=== PATIENT | female | born 1975 | race Caucasian/White ===

== ENCOUNTER 2016-11-02 08:20 | Emergency (ER) | payer OTHER, SELFPAY ==
[~2016-11-02] VITALS: Ht 167.6 cm; Wt 68.0 kg
[2016-11-02] MEDS ORDERED: NAPR500T PO (10:38)
[2016-11-02 10:44] VITALS: BP 116/62
== END 2016-11-02 10:49 | disposition home or self-care (01) ==
LOC: M ED 09:28
DX: M19.071 Primary osteoarthritis, right ankle and foot (principal); F17.200 Nicotine dependence, unspecified, uncomplicated; Z88.5 Allergy status to narcotic agent

== ENCOUNTER → 2020-05-13 | Outpatient (CLI) | payer OTHER ==
[~2020-05-13] MED LIST: NAPR-837 PO
[2020-05-13 09:54] LABS: ALT/SGPT 17 U/L (12-78); BILIRUBIN,TOTAL 0.4 MG/DL (0.2-1.0); BLOOD UREA NITROGEN 6 MG/DL (7-18); CARBON DIOXIDE LEVEL 27 MEQ/L (21-32); CHLORIDE LEVEL 107 MEQ/L (98-107); CHOLESTEROL LEVEL 197 MG/DL (<200); CHOLESTEROL RISK RATIO 6.156 (<5); CREATININE FOR GFR 0.68 MG/DL (0.55-1.30); FREE T4 1.05 NG/DL (0.76-1.46); GLOMERULAR FILTRATION RATE > 60.0 (>58); GLUCOSE, FASTING 85 MG/DL (70-100); HDL CHOLESTEROL 32 MG/DL (>40); LDL CHOLESTEROL 146 MG/DL (<100); NON-HDL-C 165 MG/DL; POTASSIUM SERUM 3.8 MEQ/L (3.5-5.1); SODIUM LEVEL 141 MEQ/L (136-145); THYROID STIMULATING HORMONE 0.892 uIU/ML (0.358-3.740); TOTAL PROTEIN 7.3 GM/DL (6.4-8.2); TRIGLYCERIDES LEVEL 96 MG/DL (<150)
== END ==
LOC: M LAB 08:49
PROVIDERS: ATTEND Physician Assistant
DX: E55.9 Vitamin D deficiency, unspecified (principal); R41.840 Attention and concentration deficit; F41.9 Anxiety disorder, unspecified; Z13.220 Encounter for screening for lipoid disorders

== ENCOUNTER 2020-06-21 11:00 | Emergency (ER) | payer OTHER ==
[~2020-06-21] VITALS: Ht 167.6 cm; Wt 74.3 kg
[2020-06-21 11:00] VITALS: BP 131/71
--- OUTSIDE RECORDS SUMMARY | 2020-06-21 11:08 | CCD ---
Author Author [facility] Organization [facility] Address Unknown Phone Unavailable Care Team Providers Care Relay Tester Name Role Phone Pam Rahman Unavailable PROBLEMS Type Condition ICD9-CM Code [id number] Code Onset Dates Condition S tatus SNOMED Code Notes Problem Enlarged thyroid 240.9 Active 7669879 Problem Fatigue 780.79 Active 89916879 Problem Ovarian cyst 620.2 Active 01463816 Problem B12 deficiency 266.2 Active 52178265 Problem Vitamin d deficiency 268.9 Active 23220705 Problem Difficulty concentrating R41.840 Active 5117492 5 Problem Vitamin D deficiency disease E55.9 Active 347 16514 Problem History of tobacco use, presenting hazards to health V15.82 Active 8201834439190 Problem Mixed hyperlipidemia E78.2 Active 316159787 Problem Nicotine dependence 305.1 Active 07617139 Problem Anxiety F41.9 Active 83385176 Problem Vitamin D deficiency E55.9 Active 24482279 Problem Nicotine dependence, cigarettes, uncomplicated F17 .210 Active 18654833 Problem Anxiety about blushing F41.9 Active 64516793 ALLERGIES Allergen (clinical drug ingredient) Drug/Non Drug Allergy do cumented on EMR Reaction Allergy Type Onset Date Status codeine Codeine Sulfate([facility] Code:[address]-58) Rash/ h/a Drug Al lergy Active Latex (for allergy use only) Rash Drug Allergy Active Adhesive Tape Rash Drug Allergy Active ENCOUNTERS from 1977 to 2020-06-10 Encounter Location Date Provider Diagnosis [address] [address] May, Pam Josiah Anxiety F41.9 ; Difficulty concentrating R41.840 ; Mixed hyperlipidemia E78.2 ; Vitamin D deficiency E55.9 and Nicotine dependence, cigarettes, uncomplicated F17.210 IMMUNIZATIONS Vaccine Route Administration Date Status TDAP 0.5mL (Boostrix) IM Intramuscular September 11, 2013 Administe red SOCIAL HISTORY Tobacco Use: Social History Observation Description Date Details (start date - stop date) Current Smoker Sex Assigned At : Social History Observation Description Sex Assigned At Unknown Education: Question Answer Notes Level of Education: College Audit Question Answer Notes Total Score: 1 Interpretation: Alcohol Education Language: Question Answer Notes Languages spoken: [place] Islander Roman Catholic: Question Answer Notes Roman Catholic No worship beliefs that would impact health care. Sexual Hx: Question Answer Notes Had sex in the last 12 months (vaginal, oral, or anal)? Yes LMP: 04/22/2020 Have you ever had an STD? No with Men only Use protection? No Drug and Alcohol Question Answer Notes Total Score: 0 Interpretation: No problems reported Alcohol Screening: Question Answer Notes Did you have a drink containing alcohol in the past year? Ye s Points 1 Interpretation Negative How often did you have six or more drinks on one occas ion in the past year? Never (0 points) How many drinks did you have on a typica l day when you were drinking in the past year? 1 or 2 (0 points) How often did you have a drink containing alcohol in t he past year? Monthly or less (1 point) Tobacco Use: Question Answer Notes Are you a: current smoker How many cigarettes a day do you smoke? 6-10 Are you interested in quitting? Ready to quit Counseled the patient on tobacco use, cessation provided 12/2019 REASON FOR REFERRAL No Information VITAL SIGNS Weight 159 lbs May, Height 67.5 in May, BMI 24.53 kg/m2 May, Heart Rate 93 /min May, Respiratory Rate 18 /min May, Temperature 97.7 degrees Fahrenheit May, Oximetry 100 May, Blood pressure systolic 116 mm Hg May, Blood pressure diastolic 80 mm Hg May, MEDICATIONS Medication SIG (Take, Route, Frequency, Duration) Notes Start Da te End Date Status Nicotine 14 MG/24HR 1 patch to skin Transdermal Once a day for 3 0 day(s) Apr, Not-Taking Vitamin B12 500 MCG 1 tablet Orally Once a day for 30 day(s) Active Aleve 220 MG 1 tablet as needed Orally twice daily as needed Active Chantix Starting Month Levi 0.5 MG X 11 & 1 MG X 42 as directed Orally as directed for 30 Days May, Active Multivitamins OTC as directed Orally daily Active Drisdol 60664 UNIT 1 capsule Orally once weekly for 30 day(s) Active Calcium 600-D 600-400 MG-UNIT 1 tablet with food Orally once a day Active Iron OTC 1 tab Orally daily for 30 day(s) Active Atomoxetine HCl 80 MG 1 capsule in the morning Orally Twice a da y Apr, Active Chantix Continuing Month Levi 1 MG 1 tablet Orally Twice a day for 3 0 day(s) Not-Taking Strattera 40 MG 1 capsule in the morning Orally Once a day for 1 4 day(s) Apr, Not-Taking Atomoxetine HCl 40 MG 1 capsule in the morning Orally Twice a day for 30 day(s) May, Active Ibuprofen 200 MG 1 tablet as needed Orally every 6 hrs hrs as needed Active PROCEDURES No Information RESULTS No Results REASON FOR VISIT 4 weeks MEDICAL (GENERAL) HISTORY Type Description Date Medical History sanchez use, since early 20s Medical History h/o ovarian cyst Medical History RAMA 10/04 - FEV1 3.23 Surgical History C section 02/2005 Surgical History right ankle - bone fragments removed 1993 Surgical History tubal ligation 06/2005 Surgical History D & C 07/2002 Hospitalization History first two vaginal deliveries and second a primary section d/t breech 1995, 2003, 2004 Goals Section No Information Health Concerns No Information MEDICAL EQUIPMENT No Information MENTAL STATUS No Information FUNCTIONAL STATUS No Information ASSESSMENTS Encounter Date Diagnosis Assessment Notes Treatment Notes Treatm ent Clinical Notes May, Anxiety (ICD-10 - F41.9) as above May, Difficulty concentrating (ICD-10 - R41.840) better on the atomoxetine, patient would like to seperate the doses, however it is a capsule, will try to get insurance to cover 40mg bid as an alternative May, Mixed hyperlipidemia (ICD-10 - E78.2) 10 year ASCVD risk is 5.3%. Based on the current 2018 ALICE/AHA clinical practice guidelines, patient is considered borderline risk. We engaged in a risk discussion and reviewed risk enhancers. Patient does not have a family hx of premature ASCVD, persistently elevated LDL-C >160, CKD, Metabolic Syndrome, inflammatory diseases, early menopause or persistently elevated triglycerides. After much discussion and through shares decision making statin therapy will not be initiated. I reviewed/recommended lifestyle modifications to help lower cardiovascular disease risk. These recommendations included eating a heart healthy diet, regular aerobic exercise and maintaining a desirable body weight May, Vitamin D deficiency (ICD-10 - E55.9) patient to start OTC vitamin D supplements May, Nicotine dependence, cigarettes, uncompl icated (ICD-10 - F17.210) will send chantix for patient to start, she has been on the medication before and did not have any side effects PLAN OF TREATMENT Medication Medication Name Sig Start Date Stop Date Chantix Starting Month Levi 0.5 MG X 11 & 1 MG X 42 as directed Orally as directed for 30 Days May, Atomoxetine HCl 40 MG 1 capsule in the morning Orally Twice a day for 30 day(s) May, Treatment Notes Assessment Notes Clinical Notes Anxiety as above Difficulty concentrating better on the a tomoxetine, patient would like to seperate the doses, however it is a capsule, will try to get insurance to cover 40mg bid as an alternative Mixed hyperlipidemia 10 year ASCVD risk is 5.3%. Based on the current 2018 ALICE/AHA clinical practice guidelines, patient is considered borderline risk. We engaged in a risk discussion and reviewed risk enhancers. Patient does not have a family hx of premature ASCVD, persistently elevated LDL-C >160, CKD, Metabolic Syndrome, inflammatory diseases, early menopause or persistently elevated triglycerides. After much discussion and through shares decision making statin therapy will not be initiated. I reviewed/recommended lifestyle modifications to help lower cardiovascular disease risk. These recommendations included eating a heart healthy diet, regular aerobic exercise and maintaining a desirable body weight Vitamin D deficiency patient to start OT C vitamin D supplements Nicotine dependence, cigarettes, uncomplicated will send chantix for patient to start, she has been on the medication before and did not have any side effects Next Appt Details 6 Months Reason: Provider Name:Pamdarrick Rahman, 2020-11-25 10 :00:00 AM, [address] [place], [address], Insurance Providers Payer Name Payer Address Payer Phone Insured Name Patient Relati onship to Insured Coverage Start Date Coverage End Date [facility] [address] [facility] [phone] ZAINAB MASSEY self
--- OUTSIDE RECORDS SUMMARY | 2020-06-21 11:08 | CCD ---
Author Author [facility] Organization [facility] Address Unknown Phone Unavailable Care Team Providers Care Butadiene Converter Operator Name Role Phone Pam Rahman Unavailable PROBLEMS Type Condition ICD9-CM Code [id number] Code Onset Dates Condition S tatus SNOMED Code Notes Problem Enlarged thyroid 240.9 Active 9800169 Problem Fatigue 780.79 Active 52656662 Problem Ovarian cyst 620.2 Active 87350471 Problem B12 deficiency 266.2 Active 52540269 Problem Vitamin d deficiency 268.9 Active 59334037 Problem Difficulty concentrating R41.840 Active 8493381 5 Problem Vitamin D deficiency disease E55.9 Active 347 88276 Problem History of tobacco use, presenting hazards to health V15.82 Active 8516343785418 Problem Mixed hyperlipidemia E78.2 Active 227069962 Problem Nicotine dependence 305.1 Active 12419272 Problem Anxiety F41.9 Active 39443824 Problem Vitamin D deficiency E55.9 Active 61482635 Problem Nicotine dependence, cigarettes, uncomplicated F17 .210 Active 81103376 Problem Anxiety about blushing F41.9 Active 40464378 ALLERGIES Allergen (clinical drug ingredient) Drug/Non Drug Allergy do cumented on EMR Reaction Allergy Type Onset Date Status codeine Codeine Sulfate([facility] Code:[address]-51) Rash/ h/a Drug Al lergy Active Latex (for allergy use only) Rash Drug Allergy Active Adhesive Tape Rash Drug Allergy Active ENCOUNTERS from 1977 to 2020-06-01 Encounter Location Date Provider Diagnosis [address] [address] Apr, Pam Rahman Adult general medical examination Z00.00 ; Difficulty concentrating R41.840 ; Anxiety F41.9 ; Vitamin D deficiency E55.9 ; Nicotine dependence, cigarettes, uncomplicated F17.210 ; Encounter for screening mammogram for malignant neoplasm of breast Z12.31 and Screening for lipid disorders Z13.220 IMMUNIZATIONS Vaccine Route Administration Date Status TDAP [...] Education Language: Question Answer Notes Languages spoken: Martiniquais Adventism: Question Answer Notes Adventism No mormonism beliefs that would impact health care. Sexual [...] FOR REFERRAL No Information VITAL SIGNS Weight 158 lbs Apr, Height 67.5 in Apr, BMI 24.38 kg/m2 Apr, Heart Rate 111 /min Apr, Respiratory Rate 18 /min Apr, Temperature 98.5 degrees Fahrenheit Apr, Oximetry 94 Apr, Blood pressure systolic 112 mm Hg Apr, Blood pressure diastolic 80 mm Hg Apr, MEDICATIONS Medication SIG (Take, Route, Frequency, Duration) Notes Start Da te End Date Status Aleve 220 MG 1 tablet as needed Orally twice daily as needed Active Calcium 600-D 600-400 MG-UNIT 1 tablet with food Orally once a day Active Strattera 40 MG 1 capsule in the morning Orally Once a day for 1 4 day(s) Apr, Not-Taking Drisdol 11165 UNIT 1 capsule Orally once weekly for 30 day(s) Active Ibuprofen 200 MG 1 tablet as needed Orally every 6 hrs hrs as needed Active Iron OTC 1 tab Orally daily for 30 day(s) Active Nicotine 14 MG/24HR 1 patch to skin Transdermal Once a day for 3 0 day(s) Apr, Not-Taking Chantix Starting Month Levi 0.5 MG X 11 & 1 MG X 42 as directed Orally as directed for 30 Days May, Active Atomoxetine HCl 80 MG 1 capsule in the morning Orally Twice a da y Apr, Active Multivitamins OTC as directed Orally daily Active Vitamin B12 500 MCG 1 tablet Orally Once a day for 30 day(s) Active Chantix Continuing Month Levi 1 MG 1 tablet Orally Twice a day for 3 0 day(s) Not-Taking PROCEDURES No Information RESULTS No Results REASON FOR VISIT Was Jaki ptElias 2014 MEDICAL (GENERAL) HISTORY Type Description Date Medical [...] Notes Treatment Notes Treatm ent Clinical Notes Apr, Adult general medical examination (ICD-10 - Z00. 00) age appropriate anticipatory guidance given, per USPSTF recommendations; immunizations up to date. discussed plans for implementing improvement in identified areas Apr, Difficulty concentrating (ICD-10 - R41.840) will start patient on Strattera for her symptoms, Instructions given to patient on medication use along with a discussion concerning common reactions/side effects to medication. Patient verbalized understanding and will call clinic with any further questions or concerns. will follow up in 4-6 weeks. Apr, Anxiety (ICD-10 - F41.9) as above Apr, Vitamin D deficiency (ICD-10 - E55.9) will check vitamin D levels today Apr, Nicotine dependence, cigarettes, uncompl icated (ICD-10 - F17.210) Smoking cessation advised for 5 min. Patient willing to quit, interested in starting nicotine patches. I discussed with patient, in every day terms, the health effects associated with smoking. These included: cancer (lung, colon, head and neck), stroke, heart disease, gum infection, and chronic lung disease. Patient verbalized understanding. I will continue to encourage cessation. Apr, Encounter for screening mamm ogram for malignant neoplasm of breast (ICD-10 - Z12.31) Mammogram order given to patient today. She will schedule her own appointment Apr, Screening for lipid disorders (ICD-10 - Z13.220) PLAN OF TREATMENT Medication Medication Name Sig Start Date Stop Date Chantix Starting Month Levi 0.5 MG X 11 & 1 MG X 42 as directed Orally as directed for 30 Days May, Treatment Notes Assessment Notes Clinical Notes Adult general medical examination age ap propriate anticipatory guidance given, per USPSTF recommendations; immunizations up to date. discussed plans for implementing improvement in identified areas Difficulty concentrating will start ousmane ent on Yadyera for her symptoms, Instructions given to patient on medication use along with a discussion concerning common reactions/side effects to medication. Patient verbalized under standing and will call clinic with any further questions or concerns. will follow up in 4-6 weeks. Anxiety as above Vitamin D deficiency will check vitamin D levels today Nicotine dependence, cigarettes, uncomplicated Smoking cessation advised for 5 min. Patient willing to quit, interested in starting nicotine patches. I discussed with patient, in every day terms, the health effects associated with smoking. These included: cancer (lung, colon, head and neck), stroke, heart disease, gum infection, and chronic lung disease. Patient verbalized understanding. I will continue to encourage cessation. Encounter for screening mammogram for malignant neoplasm of breast Mammogram order given to patient today. She will schedule her own appointment Future Test Test Name Order Date [facility]ila Screening Bilateral (Ultrasound if Indicated ) (3D Mammo) [id number] VITAMIN D 25-HYDROXY [id number] FREE T4 & TSH PANEL [id number] LIPID PANEL (CARDIAC RISK) [id number] Comprehensive Metabolic Profile (CMP) [id number] Next Appt Details 4 Weeks Reason: Provider Name:Pam Rahman, 2020-11-25 10 :00:00 AM, [address] [place], [address], Insurance Providers Payer Name Payer Address Payer Phone Insured Name Patient Relati onship to Insured Coverage Start Date Coverage End Date [facility] COMMUN[facility] PLAN [facility] [address] [facility] [phone] ZAINAB MASSEY self
--- OUTSIDE RECORDS SUMMARY | 2020-06-21 11:08 | CCD ---
Author Author [facility] Organization [facility] Address Unknown Phone Unavailable Care Team Providers Care Patient Safety Coordinator Name Role Phone Pam Rahman Unavailable PROBLEMS Type Condition ICD9-CM Code PXC25-TU Code Onset Dates Condition S tatus SNOMED Code Notes Problem Nicotine dependence 305.1 Active 39976918 Problem History of tobacco use, presenting hazards to health V15.82 Active 6461135099821 Problem B12 deficiency 266.2 Active 73275388 Problem Enlarged thyroid 240.9 Active 1094034 Problem Vitamin D deficiency E55.9 Active 26433704 Problem Fatigue 780.79 Active 16556563 Problem Nicotine dependence, cigarettes, uncomplicated F17 .210 Active 55929433 Problem Ovarian cyst 620.2 Active 04399473 Problem Vitamin d deficiency 268.9 Active 07323438 Problem Anxiety about blushing F41.9 Active 84506647 Problem Difficulty concentrating R41.840 Active 3212909 5 Problem Anxiety F41.9 Active 24680605 ALLERGIES Allergen (clinical drug ingredient) Drug/Non Drug Allergy do cumented on EMR Reaction Allergy Type Onset Date Status codeine Codeine Sulfate([facility] Code:[address]-77) Rash/ h/a Drug Al lergy Active Latex (for allergy use only) Rash Drug Allergy Active Adhesive Tape Rash Drug Allergy Active ENCOUNTERS from 1977 to 2020-05-07 Encounter Location Date Provider Diagnosis [address] [address] Apr, Pam Rahman IMMUNIZATIONS Vaccine Route Administration Date Status TDAP [...] Education Language: Question Answer Notes Languages spoken: Lithuanian Hindu: Question Answer Notes Hindu No sabianism beliefs that would impact health care. Sexual [...] REASON FOR REFERRAL No Information VITAL SIGNS No information MEDICATIONS Medication SIG (Take, Route, Frequency, Duration) Notes Start Da te End Date Status Drisdol 04134 UNIT 1 capsule Orally once weekly for 30 day(s) Active Nicotine 14 MG/24HR 1 patch to skin Transdermal Once a day for 3 0 day(s) Apr, Active Aleve 220 MG 1 tablet as needed Orally twice daily as needed Active Ibuprofen 200 MG 1 tablet as needed Orally every 6 hrs hrs as needed Active Strattera 40 MG 1 capsule in the morning Orally Once a day for 1 4 day(s) Apr, Active Calcium 600-D 600-400 MG-UNIT 1 tablet with food Orally once a day Active Atomoxetine HCl 40 MG 1 capsule in the morning Orally Twice a day for 30 day(s) Apr, Active Multivitamins OTC as directed Orally daily Active Vitamin B12 500 MCG 1 tablet Orally Once a day for 30 day(s) Active Iron OTC 1 tab Orally daily for 30 day(s) Active Chantix Continuing Month Levi 1 MG 1 tablet Orally Twice a day for 3 0 day(s) Not-Taking PROCEDURES No Information RESULTS No Results REASON FOR VISIT nicotine patches MEDICAL (GENERAL) HISTORY Type Description Date Medical [...] No Information FUNCTIONAL STATUS No Information ASSESSMENTS No Information PLAN OF TREATMENT Medication Medication Name Sig Start Date Stop Date Atomoxetine HCl 40 MG 1 capsule in the morning Orally Twice a day for 30 day(s) Apr, Strattera 40 MG 1 capsule in the morning Orally Once a d ay for 14 day(s) Apr, Nicotine 14 MG/24HR 1 patch to skin Transdermal Once a day f or 30 day(s) Apr, Next Appt Details Provider Name:Pam Rahman, 2020-05-28 10 :00:00 AM, [address] [place], [address], Insurance Providers Payer Name Payer Address Payer Phone Insured Name Patient Relati onship to Insured Coverage Start Date Coverage End Date [facility] COMM[facility] PLAN [facility] [address] [facility] [phone] ZAINAB MASSEY self
--- OUTSIDE RECORDS SUMMARY | 2020-06-21 11:08 | CCD ---
Author Author [facility] Organization [facility] Address Unknown Phone Unavailable Care Team Providers Care Makeup Editor Name Role Phone Pam Rahman Unavailable PROBLEMS Type Condition ICD9-CM Code [id number] Code Onset Dates Condition S tatus SNOMED Code Notes Problem Enlarged thyroid 240.9 Active 4778790 Problem Fatigue 780.79 Active 75646994 Problem Ovarian cyst 620.2 Active 38471133 Problem B12 deficiency 266.2 Active 34153567 Problem Vitamin d deficiency 268.9 Active 16116105 Problem Difficulty concentrating R41.840 Active 3168518 5 Problem Vitamin D deficiency disease E55.9 Active 347 26501 Problem History of tobacco use, presenting hazards to health V15.82 Active 0131373222869 Problem Mixed hyperlipidemia E78.2 Active 742777909 Problem Nicotine dependence 305.1 Active 57228698 Problem Anxiety F41.9 Active 43532718 Problem Vitamin D deficiency E55.9 Active 33704806 Problem Nicotine dependence, cigarettes, uncomplicated F17 .210 Active 01378801 Problem Anxiety about blushing F41.9 Active 81548920 ALLERGIES Allergen (clinical drug ingredient) Drug/Non Drug Allergy do cumented on EMR Reaction Allergy Type Onset Date Status codeine Codeine Sulfate([facility] Code:[address]-78) Rash/ h/a Drug Al lergy Active Latex (for allergy use only) Rash Drug Allergy Active Adhesive Tape Rash Drug Allergy Active ENCOUNTERS from 1977 to 2020-05-29 Encounter Location Date Provider Diagnosis [facility] [address] [place] [address] Apr, Pam Josiah IMMUNIZATIONS Vaccine Route Administration Date Status TDAP [...] Education Language: Question Answer Notes Languages spoken: Slovak Muslim: Question Answer Notes Muslim No baptism beliefs that would impact health care. Sexual [...] for 1 4 day(s) Apr, Not-Taking Drisdol 05909 UNIT 1 capsule Orally once weekly for [...] Information RESULTS No Results REASON FOR VISIT PA Atomoxetine HCl 40mg capsules, #60/30 MEDICAL (GENERAL) HISTORY Type Description Date Medical [...] Orally as directed for 30 Days May, Next Appt Details Provider Name:Pam Rahman, 2020-11-25 10 :00:00 AM, [address] [place], [address], Insurance Providers Payer Name Payer Address Payer Phone Insured Name Patient Relati onship to Insured Coverage Start Date Coverage End Date [facility] COMM[facility] PLAN [facility] [address] [facility] [address] [phone] ZAINAB MASSEY self
--- OUTSIDE RECORDS SUMMARY | 2020-06-21 11:08 | CCD ---
Author Author [facility] Organization [facility] Address Unknown Phone Unavailable Care Team Providers Care Seismograph Observer Name Role Phone Pam Rahman Unavailable PROBLEMS Type Condition ICD9-CM Code CSS96-DF Code Onset Dates Condition S tatus SNOMED Code Notes Problem Enlarged thyroid 240.9 Active 7095646 Problem Fatigue 780.79 Active 55410808 Problem Ovarian cyst 620.2 Active 65948939 Problem B12 deficiency 266.2 Active 15225920 Problem Vitamin d deficiency 268.9 Active 75438104 Problem Difficulty concentrating R41.840 Active 0052298 5 Problem Vitamin D deficiency disease E55.9 Active 347 96825 Problem History of tobacco use, presenting hazards to health V15.82 Active 7316412909385 Problem Mixed hyperlipidemia E78.2 Active 949556141 Problem Nicotine dependence 305.1 Active 17148266 Problem Anxiety F41.9 Active 45160081 Problem Vitamin D deficiency E55.9 Active 72649311 Problem Nicotine dependence, cigarettes, uncomplicated F17 .210 Active 84572347 Problem Anxiety about blushing F41.9 Active 32940387 ALLERGIES Allergen (clinical drug ingredient) Drug/Non Drug Allergy do cumented on EMR Reaction Allergy Type Onset Date Status codeine Codeine Sulfate([facility] Code:[address]-74) Rash/ h/a Drug Al lergy Active Latex (for allergy use only) Rash Drug Allergy Active Adhesive Tape Rash Drug Allergy Active ENCOUNTERS from 1977 to 2020-06-12 Encounter Location Date Provider Diagnosis [address] [address] May, Pam Josiah Difficulty concentrating R41.840 IMMUNIZATIONS Vaccine Route Administration Date Status TDAP 0.5mL (Boostrix) IM Intramuscular September 11, 2013 Administe angela SOCIAL HISTORY Tobacco Use: Social History Observation Description Date Details (start date - stop date) Current Smoker Sex Assigned At : Social History Observation Description Sex Assigned At Unknown Education: Question Answer Notes Level of Education: College Audit Question Answer Notes Total Score: 1 Interpretation: Alcohol Education Language: Question Answer Notes Languages spoken: Guyanese Mandaen: Question Answer Notes Mandaen No presybeterian beliefs that would impact health care. Sexual [...] Notes Start Da te End Date Status Chantix Continuing Month Levi 1 MG 1 tablet Orally Twice a day for 3 0 day(s) Not-Taking Chantix Starting Month Levi 0.5 MG X 11 & 1 MG X 42 as directed Orally as directed for 30 Days May, Active Multivitamins OTC as directed Orally daily Active Aleve 220 MG 1 tablet as needed Orally twice daily as needed Active Atomoxetine HCl 80 MG TAKE ONE CAPSULE BY MOUTH EVERY DAY for 30 Active Calcium 600-D 600-400 MG-UNIT 1 tablet with food Orally once a day Active Nicotine 14 MG/24HR 1 patch to skin Transdermal Once a day for 3 0 day(s) Apr, Not-Taking Vitamin B12 500 MCG 1 tablet Orally Once a day for 30 day(s) Active Strattera 40 MG 1 capsule in the morning Orally Once a day for 1 4 day(s) Apr, Not-Taking Ibuprofen 200 MG 1 tablet as needed Orally every 6 hrs hrs as needed Active Drisdol 26252 UNIT 1 capsule Orally once weekly for 30 day(s) Active Atomoxetine HCl 40 MG 1 capsule in the morning Orally Twice a day for 30 day(s) May, Active Iron OTC 1 tab Orally daily for 30 day(s) Active PROCEDURES No Information RESULTS No Results REASON FOR VISIT PA Strattera 40mg cap, BID MEDICAL (GENERAL) HISTORY Type Description Date Medical [...] Treatment Notes Treatm ent Clinical Notes May, Difficulty concentrating (ICD-10 - R41.840) PLAN OF TREATMENT Medication Medication Name Sig Start Date Stop Date Atomoxetine HCl 80 MG TAKE ONE CAPSULE BY MOUTH EVERY DAY for 30 Atomoxetine HCl 40 MG 1 capsule in the morning Orally Twice a day for 30 day(s) May, Chantix Starting Month Levi 0.5 MG X 11 & 1 MG X 42 as directed Orally as directed for 30 Days May, Next Appt Details Provider Name:Pam Rahman, 2020-11-25 10 :00:00 AM, [address] [place], [address], Insurance Providers Payer Name Payer Address Payer Phone Insured Name Patient Relati onship to Insured Coverage Start Date Coverage End Date [facility] [address] [facility] [phone] ZAINAB MASSEY self
--- OUTSIDE RECORDS SUMMARY | 2020-06-21 11:09 | CCD ---
Author Author [facility] Organization [facility] Address Unknown Phone Unavailable Care Team Providers Care Block Inspector Name Role Phone Pittman, Janeth TEST DESIGN ENGINEER Unavailable Unavailable Pittman, Janeth TEST DESIGN ENGINEER Unavailable Unavailable Pittman, Janeth TEST DESIGN ENGINEER Unavailable Unavailable Pittman, Janeth TEST DESIGN ENGINEER Unavailable Unavailable Pittman, Janeth TEST DESIGN ENGINEER Unavailable Unavailable Pittman, Janeth TEST DESIGN ENGINEER Unavailable Unavailable Pittman, Janeth TEST DESIGN ENGINEER Unavailable Unavailable Pittman, Janeth TEST DESIGN ENGINEER Unavailable Unavailable Pittman, Janeth TEST DESIGN ENGINEER Unavailable Unavailable Pittman, Janeth TEST DESIGN ENGINEER Unavailable Unavailable Pittman, Janeth TEST DESIGN ENGINEER Unavailable Unavailable Re-disclosure Warning The records that you are about to access may contain information from federally-assisted alcohol or drug abuse programs. If such information is present, then the following federally mandated warning applies: This information has been disclosed to you from records protected by federal confidentiality rules (42 CFR part 2). The federal rules prohibit you from making any further disclosure of this information unless further disclosure is expressly permitted by the written consent of the person to whom it pertains or as otherwise permitted by 42 CFR part 2. A general authorization for the release of medical or other information is NOT sufficient for this purpose. The Federal rules restrict any use of the information to criminally investigate or prosecute any alcohol or drug abuse patient.The records that you are about to access may contain highly sensitive health information, the redisclosure of which is protected by Article 27-F of the [facility] Public Health law. If you continue you may have access to information: Regarding HIV / AIDS; Provided by facilities licensed or operated by the [facility] Office of Mental Health; or Provided by the [facility] Office for People With Developmental Disabilities. If such information is present, then the following [facility] mandated warning applies: This information has been disclosed to you from confidential records which are protected by state law. State law prohibits you from making any further disclosure of this information without the specific written consent of the person to whom it pertains, or as otherwise permitted by law. Any unauthorized further disclosure in violation of state law may result in a fine or half-way sentence or both. A general authorization for the release of medical or other information is NOT sufficient authorization for further disc losure. Family History Family Member Name Family Member Gender Family Member Status Date o f Status Description Data Source(s) Unknown Female Problem [facility] ([facility]) Unknown Female Problem [facility] ([facility]) Encounters Encounter Providers Location Date Indications Data Source(s ) Unknown [address] [facility] [place] [address] 06/10/2020 12:00:00 AM EST eCW1 ([facility]) Outpatient [address] [facility] [place] [address] 05/28/2020 12:00:00 AM EST eCW1 ([facility]) Unknown [address] [facility] [place] [address] 05/07/2020 12:00:00 AM EST eCW1 ([facility]) Unknown [address] [facility] [place] [address] 05/01/2020 12:00:00 AM EST eCW1 ([facility]) Unknown [address] [facility] [place] [address] 05/01/2020 12:00:00 AM EST eCW1 ([facility]) Outpatient [address] [facility] [place] [address] 04/30/2020 12:00:00 AM EST eCW1 ([facility]) Unknown [address] [facility] [place] [address] 04/30/2020 12:00:00 AM EST eCW1 ([facility]) Outpatient Attender: Janeth aleman 08/21/2019 09:15:00 AM EDT [facility] ([facility]) Medications Medication Brand Name Start Date Product Form Dose Route Admi nistrative Instructions Pharmacy Instructions Status Indications Reaction Description Data Source(s) 40 mg 06/12/2020 12:00:00 AM EST capsule 60 TAKE ONE CAPSULE BY MOUTH TWICE A DAY TAKE ONE CAPSULE BY MOUTH TWICE A DAY SOLD: 06/12/2020 [facility] 80 mg 06/12/2020 12:00:00 AM EST capsule 30 TAKE ONE CAPSULE BY MOUTH EVERY DAY TAKE ONE CAPSULE BY MOUTH EVERY DAY SOLD: 06/12/2020 [facility] atomoxetine 40 MG Oral Capsule Atomoxetine HCl 40 MG Atomoxe giuliana HCl 40 MG 06/08/2020 12:00:00 AM EST 1.0 {capsule_in_the_morning} active Atomoxetine HCl 40 MG eCW1 ([facility]) atomoxetine 40 MG Oral Capsule Atomoxetine HCl 40 MG Atomoxe giuliana HCl 40 MG 06/08/2020 12:00:00 AM EST 1.0 {capsule_in_the_morning} active Atomoxetine HCl 40 MG eCW1 ([facility]) Chantix Starting Month Levi 0.5 MG X 11 & 1 MG X 42 Radha ntix Starting Month Levi 0.5 MG X 11 & 1 MG X 42 05/28/2020 12:00:00 AM EST active Chantix Starting Month Levi 0.5 MG X 11 & 1 MG X 42 eCW1 ([facility]) Chantix Starting Month Levi 0.5 MG X 11 & 1 MG X 42 Radha ntix Starting Month Levi 0.5 MG X 11 & 1 MG X 42 05/28/2020 12:00:00 AM EST active Chantix Starting Month Levi 0.5 MG X 11 & 1 MG X 42 eCW1 ([facility]) Chantix Starting Month Levi 0.5 MG X 11 & 1 MG X 42 Radha ntix Starting Month Levi 0.5 MG X 11 & 1 MG X 42 05/28/2020 12:00:00 AM EST active Chantix Starting Month Levi 0.5 MG X 11 & 1 MG X 42 eCW1 ([facility]) 0.5 mg (11)- 1 mg (42) 05/28/2020 12:00:00 AM EST tablets,do se pack 53 DIRECTED DIRECTED SOLD: 05/30/2020 [facility] Chantix Starting Month Levi 0.5 MG X 11 & 1 MG X 42 Radha ntix Starting Month Levi 0.5 MG X 11 & 1 MG X 42 05/28/2020 12:00:00 AM EST active Chantix Starting Month Levi 0.5 MG X 11 & 1 MG X 42 eCW1 ([facility]) 14 mg/24 hr 05/07/2020 12:00:00 AM EST patch 24 hour 28 APPLY 1 PATCH TO SKIN ONCE DAILY APPLY 1 PATCH TO SKIN ONCE DAILY SOLD: 05/07/2020 [facility] 24 HR Nicotine 0.583 MG/HR Transdermal Patch Nicotine 14 MG/24HR Nicotine 14 MG/24HR 05/07/2020 12:00:00 AM EST 1.0 {patch_to_skin} suspended Nicotine 14 MG/24HR eCW1 ([facility]) 24 HR Nicotine 0.583 MG/HR Transdermal Patch Nicotine 14 MG/24HR Nicotine 14 MG/24HR 05/07/2020 12:00:00 AM EST 1.0 {patch_to_skin} suspended Nicotine 14 MG/24HR eCW1 ([facility]) 24 HR Nicotine 0.583 MG/HR Transdermal Patch Nicotine 14 MG/24HR Nicotine 14 MG/24HR 05/07/2020 12:00:00 AM EST 1.0 {patch_to_skin} suspended Nicotine 14 MG/24HR eCW1 ([facility]) 24 HR Nicotine 0.583 MG/HR Transdermal Patch Nicotine 14 MG/24HR Nicotine 14 MG/24HR 05/07/2020 12:00:00 AM EST 1.0 {patch_to_skin} active Nicotine 14 MG/24HR eCW1 ([facility]) 24 HR Nicotine 0.583 MG/HR Transdermal Patch Nicotine 14 MG/24HR Nicotine 14 MG/24HR 05/07/2020 12:00:00 AM EST 1.0 {patch_to_skin} suspended Nicotine 14 MG/24HR eCW1 ([facility]) atomoxetine 40 MG Oral Capsule [Strattera] Strattera 40 MG S trattera 40 MG 05/06/2020 12:00:00 AM EST 1.0 {capsule_in_the_morning} suspended Strattera 40 MG eCW1 ([facility]) atomoxetine 40 MG Oral Capsule [Strattera] Strattera 40 MG S trattera 40 MG 05/06/2020 12:00:00 AM EST 1.0 {capsule_in_the_morning} active Strattera 40 MG eCW1 ([facility]) atomoxetine 40 MG Oral Capsule [Strattera] Strattera 40 MG S trattera 40 MG 05/06/2020 12:00:00 AM EST 1.0 {capsule_in_the_morning} suspended Strattera 40 MG eCW1 ([facility]) atomoxetine 40 MG Oral Capsule [Strattera] Strattera 40 MG S trattera 40 MG 05/06/2020 12:00:00 AM EST 1.0 {capsule_in_the_morning} suspended Strattera 40 MG eCW1 ([facility]) atomoxetine 40 MG Oral Capsule [Strattera] Strattera 40 MG S trattera 40 MG 05/06/2020 12:00:00 AM EST 1.0 {capsule_in_the_morning} active Strattera 40 MG eCW1 ([facility]) atomoxetine 40 MG Oral Capsule [Strattera] Strattera 40 MG S trattera 40 MG 05/06/2020 12:00:00 AM EST 1.0 {capsule_in_the_morning} suspended Strattera 40 MG eCW1 ([facility]) 80 mg 05/03/2020 12:00:00 AM EST capsule 30 TAKE ONE CAPSULE BY MOUTH EVERY DAY TAKE ONE CAPSULE BY MOUTH EVERY DAY SOLD: 05/04/2020 [facility] 40 mg 05/02/2020 12:00:00 AM EST capsule 14 TAKE ONE CAPSULE BY MOUTH EVERY MORNING TAKE ONE CAPSULE BY MOUTH EVERY MORNING SOLD: 05/02/2020 [facility] atomoxetine 40 MG Oral Capsule Atomoxetine HCl 40 MG Atomoxe giuliana HCl 40 MG 04/30/2020 12:00:00 AM EST 1.0 {capsule_in_the_morning} active Atomoxetine HCl 40 MG eCW1 ([facility]) atomoxetine 80 MG Oral Capsule Atomoxetine HCl 80 MG Atomoxe giuliana HCl 80 MG 04/30/2020 12:00:00 AM EST 1.0 {capsule_in_the_morning} active Atomoxetine HCl 80 MG eCW1 ([facility]) atomoxetine 40 MG Oral Capsule Atomoxetine HCl 40 MG Atomoxe giuliana HCl 40 MG 04/30/2020 12:00:00 AM EST 1.0 {capsule_in_the_morning} active Atomoxetine HCl 40 MG eCW1 ([facility]) atomoxetine 80 MG Oral Capsule Atomoxetine HCl 80 MG Atomoxe giuliana HCl 80 MG 04/30/2020 12:00:00 AM EST 1.0 {capsule_in_the_morning} active Atomoxetine HCl 80 MG eCW1 ([facility]) atomoxetine 80 MG Oral Capsule Atomoxetine HCl 80 MG Atomoxe giuliana HCl 80 MG 04/30/2020 12:00:00 AM EST 1.0 {capsule_in_the_morning} active Atomoxetine HCl 80 MG eCW1 ([facility]) atomoxetine 40 MG Oral Capsule Atomoxetine HCl 40 MG Atomoxe giuliana HCl 40 MG 04/30/2020 12:00:00 AM EST 1.0 {capsule_in_the_morning} active Atomoxetine HCl 40 MG eCW1 ([facility]) Insurance Providers Payer name Policy type / Coverage type Policy ID Covered democrat ID Covered democrat's relationship to hanson Policy Hanson Plan Information [facility] [id number] SP [id number] [facility] [id number] SP [id number] SELF PAY ONLY [id number] SP [id number] [facility] [id number] S [id number] [facility] Community Plan Health Maintenance Organization (HMO) Self MEDICAID [id number] SP [id number] BLUE [employer]OSS [employer] PLAN [id number] SP [id number] [employer] [id number] SP [id number] Problems, Conditions, and Diagnoses Code Display Name Description Problem Type Effective Dates Data Source(s) E78.2 [id number] Mixed hyperlipidemia Problem 05/28/2020 12:0 0:00 AM EST eCW1 ([facility]) E55.9 93072882 Vitamin D deficiency disease Problem 021 12:00:00 AM EST eCW1 ([facility]) F17.210 48363108 Nicotine dependence, cigarettes, uncompli cated Problem 05/07/2020 12:00:00 AM EST eCW1 ([facility]) F41.9 04221827 Anxiety about blushing Problem 04/30/2020 12 :00:00 AM EST eCW1 ([facility]) E55.9 58294312 Vitamin D deficiency Problem 04/30/2020 12:0 0:00 AM EST eCW1 ([facility]) F41.9 52109986 Anxiety Problem 04/30/2020 12:00:00 AM ES T eCW1 ([facility]) R41.840 02208743 Difficulty concentrating Problem 04/30/2020 12:00:00 AM EST eCW1 ([facility]) Social History Code Duration Value Status Description Data Source(s ) Smoking 05/28/2020 12:00:00 AM EST Current Smoker completed Curre nt Smoker eCW1 ([facility]) Smoking 05/28/2020 12:00:00 AM EST Current Smoker completed Curre nt Smoker eCW1 ([facility]) Smoking 05/28/2020 12:00:00 AM EST Current Smoker completed Curre nt Smoker eCW1 ([facility]) Smoking 05/28/2020 12:00:00 AM EST Current Smoker completed Curre nt Smoker eCW1 ([facility]) Smoking 04/30/2020 12:00:00 AM EST Current Smoker completed Curre nt Smoker eCW1 ([facility]) Smoking 04/30/2020 12:00:00 AM EST Current Smoker completed Curre nt Smoker eCW1 ([facility]) Smoking 04/30/2020 12:00:00 AM EST Current Smoker completed Curre nt Smoker eCW1 ([facility]) Vital Signs ID Date Data Source UNK Name Value Range Interpretation Code Description Data Source(s) Diastolic blood pressure 80 mm[Hg] 80 mm[Hg] eCW1 ([facility]) Systolic blood pressure 116 mm[Hg] 116 mm[Hg] e CW1 ([facility]) Body temperature 97.7 [degF] 97.7 [degF] eCW1 ( [facility]) Respiratory rate 18 /min 18 /min eCW1 ([facility]) Heart rate 93 /min 93 /min eCW1 ([facility]) Body mass index (BMI) [Ratio] 24.53 kg/m2 24.53 kg/m2 W1 ([facility]) Body height 67.5 [in_i] 67.5 [in_i] eCW1 ([facility]) Body weight 159 [lb_av] 159 [lb_av] eCW1 ([facility]) Diastolic blood pressure 80 mm[Hg] 80 mm[Hg] eCW1 ([facility]) Systolic blood pressure 112 mm[Hg] 112 mm[Hg] e CW1 ([facility]) Body temperature 98.5 [degF] 98.5 [degF] eCW1 ( [facility]) Respiratory rate 18 /min 18 /min eCW1 ([facility]) Heart rate 111 /min 111 /min eCW1 ([facility]) Body mass index (BMI) [Ratio] 24.38 kg/m2 24.38 kg/m2 W1 ([facility]) Body height 67.5 [in_i] 67.5 [in_i] eCW1 ([facility]) Body weight 158 [lb_av] 158 [lb_av] eCW1 ([facility]) Body mass index (BMI) [Ratio] 25.0 kg/m2 25.0 k g/m2 MEDENT ([facility], [facility]) Body height 66 [in_i] 66 [in_i] MEDENT ([facility], [facility]) 5'6" Body weight 155.00 [lb_av] 155.00 [lb_av] MEDEN T ([facility], [facility]) Body temperature 98.1 [degF] 98.1 [degF] MED[facility] ([facility], [facility]) Oxygen saturation in Arterial blood by Pulse oximetry 97 % 97 % [facility] ([facility], [facility]) Respiratory rate 12 /min 12 /min MED[facility] ( [facility], [facility]) Heart rate 85 /min 85 /min MED[facility] ([facility], [facility]) Diastolic blood pressure 75 mm[Hg] 75 mm[Hg] MEDENT ([facility], [facility]) Systolic blood pressure 114 mm[Hg] 114 mm[Hg] M EDENT ([facility], [facility]) Patient Treatment Plan of Care Planned Activity Planned Date Details Description Data Source (s) atomoxetine 40 MG Oral Capsule 06/08/2020 12:00:00 AM EST eCW1 ([facility]) atomoxetine 40 MG Oral Capsule 06/08/2020 12:00:00 AM EST eCW1 ([facility]) Chantix Starting Month Levi 0.5 MG X 11 & 1 MG X 42 05/28/2020 12 :00:00 AM EST eCW1 ([facility]) Chantix Starting Month Levi 0.5 MG X 11 & 1 MG X 42 05/28/2020 12 :00:00 AM EST eCW1 ([facility]) Chantix Starting Month Levi 0.5 MG X 11 & 1 MG X 42 05/28/2020 12 :00:00 AM EST eCW1 ([facility]) Chantix Starting Month Levi 0.5 MG X 11 & 1 MG X 42 05/28/2020 12 :00:00 AM EST eCW1 ([facility]) 24 HR Nicotine 0.583 MG/HR Transdermal Patch 05/07/2020 12:00:00 AM EST eCW1 ([facility]) atomoxetine 40 MG Oral Capsule [Strattera] 05/06/2020 12:00:[address] eCW1 ([facility]) atomoxetine 40 MG Oral Capsule [Strattera] 05/06/2020 12:00:[address] eCW1 ([facility]) atomoxetine 40 MG Oral Capsule 04/30/2020 12:00:00 AM EST eCW1 ([facility]) atomoxetine 40 MG Oral Capsule 04/30/2020 12:00:00 AM EST eCW1 ([facility]) atomoxetine 40 MG Oral Capsule 04/30/2020 12:00:00 AM EST eCW1 ([facility])
--- OUTSIDE RECORDS SUMMARY | 2020-06-21 11:09 | CCD ---
Author Author [facility] Organization [facility] Address Unknown Phone Unavailable Care Team Providers Care Life Science Research Assistant Name Role Phone Pam Rahman Unavailable PROBLEMS Type Condition ICD9-CM Code SNI27-UE Code Onset Dates Condition S tatus SNOMED Code Notes Problem Fatigue 780.79 Active 58049145 Problem Nicotine dependence 305.1 Active 81059108 Problem History of tobacco use, presenting hazards to health V15.82 Active 9117058156424 Problem Anxiety F41.9 Active 53548806 Problem Ovarian cyst 620.2 Active 71248367 Problem Vitamin D deficiency E55.9 Active 75904521 Problem Enlarged thyroid 240.9 Active 2375733 Problem B12 deficiency 266.2 Active 05793259 Problem Vitamin d deficiency 268.9 Active 40952959 Problem Anxiety about blushing F41.9 Active 36343259 Problem Difficulty concentrating R41.840 Active 1130898 5 ALLERGIES Allergen (clinical drug ingredient) Drug/Non Drug Allergy do cumented on EMR Reaction Allergy Type Onset Date Status codeine Codeine Sulfate([facility] Code:[address]-55) Rash/ h/a Drug Al lergy Active Latex (for allergy use only) Rash Drug Allergy Active Adhesive Tape Rash Drug Allergy Active ENCOUNTERS from 1977 to 2020-05-06 Encounter Location Date Provider Diagnosis [address] [address] Apr, Pam Rahman IMMUNIZATIONS Vaccine Route Administration [...] Education Language: Question Answer Notes Languages spoken: Djiboutian Yarsanism: Question Answer Notes Yarsanism No muslim beliefs that would impact health care. Sexual [...] Start Da te End Date Status Drisdol 22846 UNIT 1 capsule Orally once weekly for 30 day(s) Active Ibuprofen 200 MG 1 tablet as needed Orally every 6 hrs hrs as needed Active Aleve 220 MG 1 tablet as needed Orally twice daily as needed Active Strattera 40 MG 1 [...] Information RESULTS No Results REASON FOR VISIT problem w/ script - insurance coverage MEDICAL (GENERAL) HISTORY Type Description Date Medical [...] a d ay for 14 day(s) Apr, Next Appt Details Provider Name:Pam Rahman, 2020-05-28 10 :00:00 AM, [address] [place], [address], Insurance Providers Payer Name Payer Address Payer Phone Insured Name Patient Relati onship to Insured Coverage Start Date Coverage End Date [employer] [facility] [address] [facility] [phone] ZAINAB MASSEY self
--- OUTSIDE RECORDS SUMMARY | 2020-06-21 11:09 | CCD ---
Author Author [facility] Organization [facility] Address Unknown Phone Unavailable Care Team Providers Care Charge Operator Name Role Phone Pam Rahman Unavailable PROBLEMS Type Condition ICD9-CM Code OBB67-MU Code Onset Dates Condition S tatus SNOMED Code Notes Problem Fatigue 780.79 Active 00879122 Problem Nicotine dependence 305.1 Active 51428843 Problem History of tobacco use, presenting hazards to health V15.82 Active 4177697324193 Problem Anxiety F41.9 Active 52976674 Problem Ovarian cyst 620.2 Active 26187783 Problem Vitamin D deficiency E55.9 Active 77935944 Problem Enlarged thyroid 240.9 Active 8134937 Problem B12 deficiency 266.2 Active 96375147 Problem Vitamin d deficiency 268.9 Active 59204847 Problem Anxiety about blushing F41.9 Active 41114321 Problem Difficulty concentrating R41.840 Active 4722959 5 ALLERGIES Allergen (clinical drug ingredient) Drug/Non Drug Allergy do cumented on EMR Reaction Allergy Type Onset Date Status codeine Codeine Sulfate([facility] Code:[address]-65) Rash/ h/a Drug Al lergy Active Latex (for allergy use only) Rash Drug Allergy Active Adhesive Tape Rash Drug Allergy Active ENCOUNTERS from 1977 to 2020-05-01 Encounter Location Date Provider Diagnosis [address] [address] Apr, Pam Rahman IMMUNIZATIONS Vaccine Route Administration [...] Education Language: Question Answer Notes Languages spoken: Monegasque Bahai: Question Answer Notes Bahai No uatsdin beliefs that would impact health care. Sexual [...] Start Da te End Date Status Drisdol 87308 UNIT 1 capsule Orally once weekly for 30 day(s) Active Aleve 220 MG 1 tablet as needed Orally twice daily as needed Active Chantix Continuing Month Levi 1 MG 1 tablet Orally Twice a day for 3 0 day(s) Not-Taking Calcium 600-D 600-400 MG-UNIT 1 tablet with food Orally once a day Active Ibuprofen 200 MG 1 tablet as needed Orally every 6 hrs hrs as needed Active Multivitamins OTC as directed Orally daily Active Vitamin B12 500 MCG 1 tablet Orally Once a day for 30 day(s) Active Iron OTC 1 tab Orally daily for 30 day(s) Active Atomoxetine HCl 40 MG 1 capsule in the morning Orally Twice a day for 30 day(s) Apr, Active PROCEDURES No Information RESULTS No Results REASON FOR VISIT rx MEDICAL (GENERAL) HISTORY Type Description Date Medical [...] Twice a day for 30 day(s) Apr, Next Appt Details Provider Name:Pam Rahman, 2020-05-28 10 :00:00 AM, [address] [place], [address], Insurance Providers Payer Name Payer Address Payer Phone Insured Name Patient Relati onship to Insured Coverage Start Date Coverage End Date [facility] [address] [facility] [phone] ZAINAB MASSEY self
[2020-06-21] MEDS ORDERED: ATOM80CA6 (11:26)
[2020-06-21] MEDS ORDERED: ATOM40CA9 (11:26)
[2020-06-21] MEDS ORDERED: vitamin d PO (11:26)
[2020-06-21] MEDS ORDERED: MOTR200T44 PO (11:26)
[2020-06-21] MEDS ORDERED: CHAN1PAK11 (11:26)
--- OUTSIDE RECORDS SUMMARY | 2020-06-21 11:50 | CCD ---
Author Author [facility] Organization [facility] Address Unknown Phone Unavailable Care Team Providers Care Drive In Waiter/Waitress Name Role Phone Pittman, Janeth MANAGER CONTACT Unavailable Unavailable Pittman, Janeth MANAGER CONTACT Unavailable Unavailable Pittman, Janeth MANAGER CONTACT Unavailable Unavailable Pittman, Janeth MANAGER CONTACT Unavailable Unavailable Pittman, Janeth MANAGER CONTACT Unavailable Unavailable Pittman, Janeth MANAGER CONTACT Unavailable Unavailable Pittman, Janeth MANAGER CONTACT Unavailable Unavailable Pittman, Janeth MANAGER CONTACT Unavailable Unavailable Pittman, Janeth MANAGER CONTACT Unavailable Unavailable Pittman, Janeth MANAGER CONTACT Unavailable Unavailable Pittman, Janeth MANAGER CONTACT Unavailable Unavailable Re-disclosure Warning The records that [...] is protected by Article 27-F of the [facility] Public Health law. If you continue you may have access to information: Regarding HIV / AIDS; Provided by facilities licensed or operated by the [facility] Office of Mental Health; or Provided by the [facility] Office for People With Developmental Disabilities. If such information is present, then the following [facility] mandated warning applies: This information has been [...] law may result in a fine or [place] health [place] sentence or both. A general authorization for [...] Date Indications Data Source(s ) Unknown [address] [facility] [place] [address] 06/10/2020 12:00:00 AM EST eCW1 ([facility]) Outpatient [address] [facility] [place] [address] 05/28/2020 12:00:00 AM EST eCW1 ([facility]) Unknown [address] [facility] [place] [address] 05/07/2020 12:00:00 AM EST eCW1 ([facility]) Unknown [address] [facility] [place] [address] 05/01/2020 12:00:00 AM EST eCW1 ([facility]) Unknown [address] [facility] [place] [address] 05/01/2020 12:00:00 AM EST eCW1 ([facility]) [place] [address] [facility] [place] [address] 04/30/2020 12:00:00 AM EST eCW1 ([facility]) Unknown [address] [facility] [place] [address] 04/30/2020 12:00:00 AM EST eCW1 ([facility]) Outpatient Attender: Janeth aleman 08/21/2019 09:15:00 AM EDT MEDENT ([facility]) Medications Medication Brand Name Start Date [...] {capsule_in_the_morning} active Atomoxetine HCl 40 MG eCW1 ([facility]) atomoxetine 40 MG Oral Capsule Atomoxetine HCl 40 MG Atomoxe giuliana HCl 40 MG 06/08/2020 12:00:00 AM EST 1.0 {capsule_in_the_morning} active Atomoxetine HCl 40 MG eCW1 ([facility]) Chantix Starting Month Levi 0.5 MG X 11 & 1 MG X 42 Radha ntix Starting Month Levi 0.5 MG X 11 & 1 MG X 42 05/28/2020 12:00:00 AM EST active Chantix Starting Month Levi 0.5 MG X 11 & 1 MG X 42 eCW1 ([facility]) Chantix Starting Month Levi 0.5 MG X 11 & 1 MG X 42 Radha ntix Starting Month Levi 0.5 MG X 11 & 1 MG X 42 05/28/2020 12:00:00 AM EST active Chantix Starting Month Levi 0.5 MG X 11 & 1 MG X 42 eCW1 ([facility]) Chantix Starting Month Levi 0.5 MG X 11 & 1 MG X 42 Radha ntix Starting Month Levi 0.5 MG X 11 & 1 MG X 42 05/28/2020 12:00:00 AM EST active Chantix Starting Month Levi 0.5 MG X 11 & 1 MG X 42 eCW1 ([facility]) 0.5 mg (11)- 1 mg (42) 05/28/2020 [...] 11 & 1 MG X 42 eCW1 ([facility]) 14 mg/24 hr 05/07/2020 12:00:00 AM EST patch 24 hour 28 APPLY 1 PATCH TO SKIN ONCE DAILY APPLY 1 PATCH TO SKIN ONCE DAILY SOLD: 05/07/2020 [facility] 24 HR Nicotine 0.583 MG/HR Transdermal Patch Nicotine 14 MG/24HR Nicotine 14 MG/24HR 05/07/2020 12:00:00 AM EST 1.0 {patch_to_skin} suspended Nicotine 14 MG/24HR eCW1 ([facility]) 24 HR Nicotine 0.583 MG/HR Transdermal Patch Nicotine 14 MG/24HR Nicotine 14 MG/24HR 05/07/2020 12:00:00 AM EST 1.0 {patch_to_skin} suspended Nicotine 14 MG/24HR eCW1 ([facility]) 24 HR Nicotine 0.583 MG/HR Transdermal Patch Nicotine 14 MG/24HR Nicotine 14 MG/24HR 05/07/2020 12:00:00 AM EST 1.0 {patch_to_skin} suspended Nicotine 14 MG/24HR eCW1 ([facility]) 24 HR Nicotine 0.583 MG/HR Transdermal Patch Nicotine 14 MG/24HR Nicotine 14 MG/24HR 05/07/2020 12:00:00 AM EST 1.0 {patch_to_skin} active Nicotine 14 MG/24HR eCW1 ([facility]) 24 HR Nicotine 0.583 MG/HR Transdermal Patch Nicotine 14 MG/24HR Nicotine 14 MG/24HR 05/07/2020 12:00:00 AM EST 1.0 {patch_to_skin} suspended Nicotine 14 MG/24HR eCW1 ([facility]) atomoxetine 40 MG Oral Capsule [Strattera] Strattera 40 MG S trattera 40 MG 05/06/2020 12:00:00 AM EST 1.0 {capsule_in_the_morning} suspended Strattera 40 MG eCW1 ([facility]) atomoxetine 40 MG Oral Capsule [Strattera] Strattera 40 MG S trattera 40 MG 05/06/2020 12:00:00 AM EST 1.0 {capsule_in_the_morning} active Strattera 40 MG eCW1 ([facility]) atomoxetine 40 MG Oral Capsule [Strattera] Strattera 40 MG S trattera 40 MG 05/06/2020 12:00:00 AM EST 1.0 {capsule_in_the_morning} suspended Strattera 40 MG eCW1 ([facility]) atomoxetine 40 MG Oral Capsule [Strattera] Strattera 40 MG S trattera 40 MG 05/06/2020 12:00:00 AM EST 1.0 {capsule_in_the_morning} suspended Strattera 40 MG eCW1 ([facility]) atomoxetine 40 MG Oral Capsule [Strattera] Strattera 40 MG S trattera 40 MG 05/06/2020 12:00:00 AM EST 1.0 {capsule_in_the_morning} active Strattera 40 MG eCW1 ([facility]) atomoxetine 40 MG Oral Capsule [Strattera] Strattera 40 MG S trattera 40 MG 05/06/2020 12:00:00 AM EST 1.0 {capsule_in_the_morning} suspended Strattera 40 MG eCW1 ([facility]) 80 mg 05/03/2020 12:00:00 AM EST capsule [...] {capsule_in_the_morning} active Atomoxetine HCl 40 MG eCW1 ([facility]) atomoxetine 80 MG Oral Capsule Atomoxetine HCl 80 MG Atomoxe giuliana HCl 80 MG 04/30/2020 12:00:00 AM EST 1.0 {capsule_in_the_morning} active Atomoxetine HCl 80 MG eCW1 ([facility]) atomoxetine 40 MG Oral Capsule Atomoxetine HCl 40 MG Atomoxe giuliana HCl 40 MG 04/30/2020 12:00:00 AM EST 1.0 {capsule_in_the_morning} active Atomoxetine HCl 40 MG eCW1 ([facility]) atomoxetine 80 MG Oral Capsule Atomoxetine HCl 80 MG Atomoxe giuliana HCl 80 MG 04/30/2020 12:00:00 AM EST 1.0 {capsule_in_the_morning} active Atomoxetine HCl 80 MG eCW1 ([facility]) atomoxetine 80 MG Oral Capsule Atomoxetine HCl 80 MG Atomoxe giuliana HCl 80 MG 04/30/2020 12:00:00 AM EST 1.0 {capsule_in_the_morning} active Atomoxetine HCl 80 MG eCW1 ([facility]) atomoxetine 40 MG Oral Capsule Atomoxetine HCl 40 MG Atomoxe giuliana HCl 40 MG 04/30/2020 12:00:00 AM EST 1.0 {capsule_in_the_morning} active Atomoxetine HCl 40 MG eCW1 ([facility]) Insurance Providers Payer name Policy type / Coverage type Policy ID Covered green party ID Covered green party's relationship to hanson Policy Hanson Plan Information [employer] [id number] SP [id number] [employer] [facility] [id number] SP [id number] SELF PAY ONLY [id number] SP [id number] [facility] O [id number] S [id number] [facility] Community Plan Health Maintenance Organization (HMO) Self MEDICAID [id number] SP [id number] BLUE [employer]OSS [employer] PLAN [id number] SP [id number] [employer] [id number] SP [id number] Problems, Conditions, and Diagnoses Code Display Name Description Problem Type Effective Dates Data Source(s) E78.2 [id number] Mixed hyperlipidemia Problem 05/28/2020 12:0 0:00 AM EST eCW1 ([facility]) E55.9 [id number] Vitamin D deficiency disease Problem 021 12:00:00 AM EST eCW1 ([facility]) F17.210 76764043 Nicotine dependence, cigarettes, uncompli cated Problem 05/07/2020 12:00:00 AM EST eCW1 ([facility]) F41.9 44260855 Anxiety about blushing Problem 04/30/2020 12 :00:00 AM EST eCW1 ([facility]) E55.9 35429625 Vitamin D deficiency Problem 04/30/2020 12:0 0:00 AM EST eCW1 ([facility]) F41.9 02030967 Anxiety Problem 04/30/2020 12:00:00 AM ES T eCW1 ([facility]) R41.840 96117506 Difficulty concentrating Problem 04/30/2020 12:00:00 AM EST eCW1 ([facility]) Social History Code Duration Value Status Description Data Source(s ) Smoking 05/28/2020 12:00:00 AM EST Current Smoker completed Curre nt Smoker eCW1 ([facility]) Smoking 05/28/2020 12:00:00 AM EST Current Smoker completed Curre nt Smoker eCW1 ([facility]) Smoking 05/28/2020 12:00:00 AM EST Current Smoker completed Curre nt Smoker eCW1 ([facility]) Smoking 05/28/2020 12:00:00 AM EST Current Smoker completed Curre nt Smoker eCW1 ([facility]) Smoking 04/30/2020 12:00:00 AM EST Current Smoker completed Curre nt Smoker eCW1 ([facility]) Smoking 04/30/2020 12:00:00 AM EST Current Smoker completed Curre nt Smoker eCW1 ([facility]) Smoking 04/30/2020 12:00:00 AM EST Current Smoker completed Curre nt Smoker eCW1 ([facility]) Vital Signs ID Date Data Source UNK Name Value Range Interpretation Code Description Data Source(s) Diastolic blood pressure 80 mm[Hg] 80 mm[Hg] eCW1 ([facility]) Systolic blood pressure 116 mm[Hg] 116 mm[Hg] e CW1 ([facility]) Body temperature 97.7 [degF] 97.7 [degF] eCW1 ( [facility]) Respiratory rate 18 /min 18 /min eCW1 ([facility]) Heart rate 93 /min 93 /min eCW1 ([facility]) Body mass index (BMI) [Ratio] 24.53 kg/m2 24.53 kg/m2 W1 ([facility]) Body height 67.5 [in_i] 67.5 [in_i] eCW1 ([facility]) Body weight 159 [lb_av] 159 [lb_av] eCW1 ([facility]) Diastolic blood pressure 80 mm[Hg] 80 mm[Hg] eCW1 ([facility]) Systolic blood pressure 112 mm[Hg] 112 mm[Hg] e CW1 ([facility]) Body temperature 98.5 [degF] 98.5 [degF] eCW1 ( [facility]) Respiratory rate 18 /min 18 /min eCW1 ([facility]) Heart rate 111 /min 111 /min eCW1 ([facility]) Body mass index (BMI) [Ratio] 24.38 kg/m2 24.38 kg/m2 W1 ([facility]) Body height 67.5 [in_i] 67.5 [in_i] eCW1 ([facility]) Body weight 158 [lb_av] 158 [lb_av] eCW1 ([facility]) Body mass index (BMI) [Ratio] 25.0 kg/m2 25.0 k g/m2 MEDENT ([facility]) Body height 66 [in_i] 66 [in_i] MEDENT ([facility], [facility]) 5'6" Body weight 155.00 [lb_av] 155.00 [lb_av] MEDEN T ([facility], [facility]) Body temperature 98.1 [degF] 98.1 [degF] [facility] ([facility], [facility]) Oxygen saturation in Arterial blood by Pulse oximetry 97 % 97 % [facility] ([facility], [facility]) Respiratory rate 12 /min 12 /min MED[facility] ( [facility], [facility]) Heart rate 85 /min 85 /min [facility] ([facility]) Diastolic blood pressure 75 mm[Hg] 75 mm[Hg] [facility] ([facility], [facility]) Systolic blood pressure 114 mm[Hg] 114 mm[Hg] M EDENT ([facility], [facility]) Patient Treatment Plan of Care Planned Activity Planned Date Details Description Data Source (s) atomoxetine 40 MG Oral Capsule 06/08/2020 12:00:00 AM EST eCW1 ([facility]) atomoxetine 40 MG Oral Capsule 06/08/2020 12:00:00 AM EST eCW1 ([facility]) Chantix Starting Month Levi 0.5 MG X 11 & 1 MG X 42 05/28/2020 12 :00:00 AM EST eCW1 ([facility]) Chantix Starting Month Levi 0.5 MG X 11 & 1 MG X 42 05/28/2020 12 :00:00 AM EST eCW1 ([facility]) Chantix Starting Month Levi 0.5 MG X 11 & 1 MG X 42 05/28/2020 12 :00:00 AM EST eCW1 ([facility]) Chantix Starting Month Levi 0.5 MG X 11 & 1 MG X 42 05/28/2020 12 :00:00 AM EST eCW1 ([facility]) 24 HR Nicotine 0.583 MG/HR Transdermal Patch 05/07/2020 12:00:00 AM EST eCW1 ([facility]) atomoxetine 40 MG Oral Capsule [Strattera] 05/06/2020 12:00:[address] eCW1 ([facility]) atomoxetine 40 MG Oral Capsule [Strattera] 05/06/2020 12:00:[address] eCW1 ([facility]) atomoxetine 40 MG Oral Capsule 04/30/2020 12:00:00 AM EST eCW1 ([facility]) atomoxetine 40 MG Oral Capsule 04/30/2020 12:00:00 AM EST eCW1 ([facility]) atomoxetine 40 MG Oral Capsule 04/30/2020 12:00:00 AM EST eCW1 ([facility])
[2020-06-21] MEDS ORDERED: CYCL-707 PO (11:57)
[2020-06-21] MEDS ORDERED: KETO10TAB PO (11:57)
== END 2020-06-21 12:13 | disposition home or self-care (01) ==
LOC: M ED 11:00
DX: M62.830 Muscle spasm of back (principal); Z88.6 Allergy status to analgesic agent

== ENCOUNTER → 2020-09-23 | Outpatient (REF) | payer OTHER ==
[~2020-09-23] MED LIST changes: +ATOM40CA9; +ATOM80CA6; +CHAN1PAK11; +CYCL-707 PO; +KETO10TAB PO; +MOTR200T44 PO; +vitamin d PO
[2020-09-23 17:36] LABS: BASO # 0.1 10^3/uL (0.0-0.2); BASO % 0.9 % (0.0-1.0); EOS # 0.3 10^3/uL (0.0-0.5); EOS % 4.8 % (0.0-3.0); HEMATOCRIT 43.2 % (36.0-47.0); HEMOGLOBIN 13.8 g/dl (12.0-15.5); LYMPH # 2.6 10^3/uL (1.5-5.0); LYMPH % 39.4 % (24.0-44.0); MEAN CORPUSCULAR HEMOGLOBIN 31.9 pg (27.0-33.0); MEAN CORPUSCULAR HGB CONC 31.9 g/dl (32.0-36.5); MEAN CORPUSCULAR VOLUME 99.8 fl (80.0-96.0); MONO # 0.5 10^3/uL (0.0-0.8); MONO % 6.8 % (2.0-8.0); NEUTROPHILS # 3.2 10^3/uL (1.5-8.5); NEUTROPHILS % 47.9 % (36.0-66.0); PLATELET COUNT, AUTOMATED 299 10^3/uL (150-450); RED BLOOD COUNT 4.33 10^6/uL (4.00-5.40); WHITE BLOOD COUNT 6.6 10^3/uL (4.0-10.0)
[2020-09-23 18:07] LABS: ALBUMIN 3.9 GM/DL (3.2-5.2); ALT/SGPT 24 U/L (12-78); BILIRUBIN,TOTAL 0.6 MG/DL (0.2-1.0); BLOOD UREA NITROGEN 5 MG/DL (7-18); CALCIUM LEVEL 9.3 MG/DL (8.5-10.1); CARBON DIOXIDE LEVEL 28 MEQ/L (21-32); CHLORIDE LEVEL 106 MEQ/L (98-107); CHOLESTEROL LEVEL 189 MG/DL (<200); CHOLESTEROL RISK RATIO 4.021 (<5); FERRITIN 10 NG/ML (8-252); GLOMERULAR FILTRATION RATE > 60.0 (>58); GLUCOSE, FASTING 79 MG/DL (70-100); HDL CHOLESTEROL 47 MG/DL (>40); IRON (FE) 73 UG/DL (50-170); LDL CHOLESTEROL 115 MG/DL (<100); NON-HDL-C 142 MG/DL; PERCENT SATURATION 17.4 % (13.2-45.0); POTASSIUM SERUM 4.2 MEQ/L (3.5-5.1); SODIUM LEVEL 141 MEQ/L (136-145); TOTAL 25(OH) VITAMIN D 16.4 NG/ML (30.0-100.0); TOTAL IRON BINDING CAPACITY 419 UG/DL (250-450); TOTAL PROTEIN 7.3 GM/DL (6.4-8.2); TRIGLYCERIDES LEVEL 135 MG/DL (<150)
[2020-09-23 18:47] LABS: HIV 1&2 SCREEN CENTAUR NEGATIVE (NEGATIVE)
[2020-09-23 19:58] LABS: HEPATITIS C VIRUS ABY INDEX < 0.0 INDEX (<0.8)
== END ==
LOC: M LAB REF 17:01
PROVIDERS: ATTEND Pediatrics
DX: Z76.89 Persons encountering health services in other specified circumstances (principal); E78.5 Hyperlipidemia, unspecified; Z13.228 Encounter for screening for other metabolic disorders; Z11.3 Encounter for screening for infections with a predominantly sexual mode of transmission

== ENCOUNTER → 2021-06-19 | Outpatient (CLI) | payer OTHER | LOC: M WHC 09:14 | PROVIDERS: ATTEND Pediatrics | DX: Z12.31 Encounter for screening mammogram for malignant neoplasm of breast (principal) ==

== ENCOUNTER → 2021-07-29 | Outpatient (CLI) | payer OTHER | LOC: M WHC 09:27 | PROVIDERS: ATTEND Pediatrics | DX: Z12.31 Encounter for screening mammogram for malignant neoplasm of breast (principal) | CPT/HCPCS: 76642; 77066; G0279 ==

== ENCOUNTER → 2022-06-11 | Outpatient (REF) | payer OTHER, MEDICAID ==
[2022-06-11 13:15] LABS: C REACTIVE PROTEIN QUANTITATIV < 0.40 MG/DL (<1.0)
[2022-06-11 13:17] LABS: BLOOD UREA NITROGEN 6 MG/DL (9-23); CALCIUM LEVEL 8.9 MG/DL (8.5-10.1); CARBON DIOXIDE LEVEL 28 MMOL/L (20-31); CHLORIDE LEVEL 105 MMOL/L (98-107); CREATININE FOR GFR 0.64 MG/DL (0.55-1.30); GLOMERULAR FILTRATION RATE > 60.0 (>58); GLUCOSE, FASTING 94 MG/DL (60-100); POTASSIUM SERUM 4.2 MMOL/L (3.5-5.1); SODIUM LEVEL 139 MMOL/L (136-145)
[2022-06-11 13:30] LABS: BASO # 0.1 10^3/uL (0.0-0.2); BASO % 0.9 % (0.0-1.0); EOS # 0.3 10^3/uL (0.0-0.5); EOS % 4.4 % (0.0-3.0); HEMOGLOBIN 13.4 g/dl (12.0-15.5); LYMPH # 2.2 10^3/uL (1.5-5.0); LYMPH % 32.9 % (24.0-44.0); MEAN CORPUSCULAR HEMOGLOBIN 30.3 pg (27.0-33.0); MEAN CORPUSCULAR HGB CONC 31.9 g/dl (32.0-36.5); MONO # 0.5 10^3/uL (0.0-0.8); MONO % 6.9 % (2.0-8.0); NEUTROPHILS # 3.7 10^3/uL (1.5-8.5); NEUTROPHILS % 54.8 % (36.0-66.0); PLATELET COUNT, AUTOMATED 286 10^3/uL (150-450); RED BLOOD COUNT 4.42 10^6/uL (4.00-5.40); WHITE BLOOD COUNT 6.8 10^3/uL (4.0-10.0)
[2022-06-11 13:40] LABS: ERYTHROCYTE SEDIMENTATION RATE 29 mm/hr (0-20)
== END ==
LOC: M LAB REF 12:30
PROVIDERS: ATTEND Nurse Practitioner Family
DX: R51.9 Headache, unspecified (principal)

== ENCOUNTER → 2022-06-24 | Outpatient (CLI) | payer OTHER ==
[~2022-06-24] MED LIST changes: +PROHANCE 279.3MG/ML 15ML VIAL ONE
== END ==
LOC: M PLAIMG 08:49
PROVIDERS: ATTEND Nurse Practitioner Family
DX: R51.9 Headache, unspecified (principal)
CPT/HCPCS: 70553; A9576

== ENCOUNTER → 2023-02-10 | Outpatient (CLI) | payer OTHER ==
[~2023-02-10] MED LIST changes: -PROHANCE 279.3MG/ML 15ML VIAL ONE
== END ==
LOC: M WHC 09:10
PROVIDERS: ATTEND Pediatrics
DX: R92.8 Other abnormal and inconclusive findings on diagnostic imaging of breast (principal)

== ENCOUNTER → 2023-03-22 | Outpatient (CLI) | payer OTHER ==
[2023-03-22 13:46] LABS: HEMATOCRIT 36.1 % (36.0-47.0); HEMOGLOBIN 11.3 g/dl (12.0-15.5); MEAN CORPUSCULAR HEMOGLOBIN 27.8 pg (27.0-33.0); MEAN CORPUSCULAR HGB CONC 31.3 g/dl (32.0-36.5); MEAN CORPUSCULAR VOLUME 88.9 fl (80.0-96.0); PLATELET COUNT, AUTOMATED 312 10^3/uL (150-450); RED BLOOD COUNT 4.06 10^6/uL (4.00-5.40); WHITE BLOOD COUNT 6.8 10^3/uL (4.0-10.0)
== END ==
LOC: M PLALAB 08:47
PROVIDERS: ATTEND Obstetrics & Gynecology
DX: N93.9 Abnormal uterine and vaginal bleeding, unspecified (principal)

== ENCOUNTER → 2023-04-20 | Outpatient (REF) | payer OTHER | LOC: M SFHCWAGY 13:01 | PROVIDERS: ATTEND Obstetrics & Gynecology | DX: N87.9 Dysplasia of cervix uteri, unspecified (principal) ==

== ENCOUNTER → 2023-04-27 | Outpatient (CLI) | payer OTHER | LOC: M WHC 10:34 | PROVIDERS: ATTEND Obstetrics & Gynecology | DX: N93.9 Abnormal uterine and vaginal bleeding, unspecified (principal) ==

== ENCOUNTER 2023-05-28 11:16 | Day surgery (SDC) | payer OTHER ==
[~2023-05-28] VITALS: Ht 167.6 cm; Wt 76.2 kg
[~2023-05-28 11:16] MED LIST changes: +AMIT25TA19 PO; +ASPI81TA26 PO; +DEXTROAMP-AMPHETAMIN PO; +GABA-1171 PO; +LR 1,000 ML IV SCH; +MAGN500T2 PO; +METH36TA5 PO; +PYRI25TA2 PO; +VITA200016 PO
[2023-05-28 11:50] LABS: HEMOGLOBIN 11.3 g/dl (12.0-15.5); MEAN CORPUSCULAR HEMOGLOBIN 25.9 pg (27.0-33.0); MEAN CORPUSCULAR HGB CONC 30.5 g/dl (32.0-36.5); MEAN CORPUSCULAR VOLUME 84.9 fl (80.0-96.0); PLATELET COUNT, AUTOMATED 320 10^3/uL (150-450); RED BLOOD COUNT 4.36 10^6/uL (4.00-5.40); WHITE BLOOD COUNT 6.1 10^3/uL (4.0-10.0)
[2023-05-28] MEDS ORDERED: LR 1,000 ML IV SCH ×2 (11:50→14:10)
[2023-05-28] MEDS ORDERED: propofoL 200 MG/20 ML VIAL As Ordered ONE (12:19)
[2023-05-28] MEDS ORDERED: KETOROLAC 60MG 2ML VIAL As Ordered ONE (12:19)
[2023-05-28] MEDS ORDERED: ONDANSETRON 4MG 2ML VIAL As Ordered ONE (12:19)
[2023-05-28] MEDS ORDERED: LIDOCAINE 2% 100MG/5ML SDV (FOR ANES.) As Ordered ONE (12:20)
[2023-05-28] MEDS ORDERED: fentaNYL 100 MCG/2 ML INJECTION As Ordered ONE (12:23)
[2023-05-28] MEDS ORDERED: MIDAZOLAM INJ 2MG/2ML VIAL As Ordered ONE (12:23)
[2023-05-28] MEDS ORDERED: SILVER NITRATE APPLICATOR (1 = QTY 10) As Ordered ONE (12:59)
[2023-05-28] MEDS ORDERED: ACETAMINOPHEN 1000MG 100ML IV BAG As Ordered ONE ×2 (13:31→14:50)
[2023-05-28] MEDS ORDERED: PERC5TAB12 PO (14:08)
[2023-05-28] MEDS ORDERED: HYDROMORPHONE HCL 0.5 MG/ 0.5 ML SYRINGE IV PRN (14:10)
[2023-05-28] MEDS ORDERED: fentaNYL 100 MCG/2 ML INJECTION IV PRN (14:10)
[2023-05-28] MEDS ORDERED: oxyCODONE 5MG TAB PO PRN (14:10)
[2023-05-28] MEDS ORDERED: ONDANSETRON 4MG 2ML VIAL IV PRN (14:10)
[2023-05-28 15:13] VITALS: BP 120/60; TEMP 98; O2SAT 100
== END 2023-05-28 15:23 | disposition home or self-care (01) ==
LOC: M SDC 11:16
PROVIDERS: ATTEND Obstetrics & Gynecology
DX: N93.9 Abnormal uterine and vaginal bleeding, unspecified (principal); N95.0 Postmenopausal bleeding; Z86.69 Personal history of other diseases of the nervous system and sense organs; R12 Heartburn; E78.00 Pure hypercholesterolemia, unspecified; F90.9 Attention-deficit hyperactivity disorder, unspecified type; Z91.040 Latex allergy status; Z91.048 Other nonmedicinal substance allergy status; Z88.5 Allergy status to narcotic agent; Z87.891 Personal history of nicotine dependence; Z79.899 Other long term (current) drug therapy; Z79.82 Long term (current) use of aspirin
CPT/HCPCS: 36415; 58563; 85027; 86850; 86900; 86901; 88305; J0131; J1100; J1885; J2250; J2405; J3010

== ENCOUNTER 2023-10-20 07:10 | Day surgery (SDC) | payer OTHER ==
[~2023-10-20] VITALS: Ht 167.6 cm; Wt 80.3 kg
[~2023-10-20 07:10] MED LIST changes: +LORA-243 PO; -LR 1,000 ML IV SCH; +NS 1,000 ML IV ONE; +PERC5TAB12 PO
[2023-10-20] MEDS ORDERED: propofoL 200 MG/20 ML VIAL As Ordered ONE (07:45)
[2023-10-20] MEDS ORDERED: LIDOCAINE 2% 100MG/5ML SDV (FOR ANES.) As Ordered ONE (07:45)
[2023-10-20 08:47] VITALS: TEMP 96.5
[2023-10-20 09:10] VITALS: BP 108/67; O2SAT 100
== END 2023-10-20 09:22 | disposition home or self-care (01) ==
LOC: M OPP 07:10
PROVIDERS: ATTEND Surgery
DX: Z12.11 Encounter for screening for malignant neoplasm of colon (principal); K63.5 Polyp of colon; K64.4 Residual hemorrhoidal skin tags; K64.8 Other hemorrhoids; I72.9 Aneurysm of unspecified site; Z87.891 Personal history of nicotine dependence; Z79.82 Long term (current) use of aspirin; Z79.899 Other long term (current) drug therapy; Z88.5 Allergy status to narcotic agent; Z91.048 Other nonmedicinal substance allergy status